=== PATIENT | male | born 1955 | race Caucasian/White ===

== ENCOUNTER 2019-05-07 13:12 | Emergency (ER) | payer OTHER, BC ==
[~2019-05-07] VITALS: Ht 188 cm; Wt 76.2 kg
[2019-05-07 13:28] VITALS: Ht 188 cm; Wt 76.2 kg
[2019-05-07 14:34] LABS: microscopic required? YES; urine erythrocyte TRACE (NEGATIVE)
[2019-05-07 15:55] VITALS: BP 145/81
== END 2019-05-07 15:55 | disposition home or self-care (01) ==
LOC: ED 13:12
PROVIDERS: Specialist
DX: R33.9 Retention of urine, unspecified (principal); N39.0 Urinary tract infection, site not specified; N40.0 Benign prostatic hyperplasia without lower urinary tract symptoms; Z91.030 Bee allergy status

== ENCOUNTER 2019-05-23 18:01 | Emergency (ER) | payer OTHER, BC ==
[~2019-05-23] VITALS: Ht 182.9 cm; Wt 74.8 kg
[2019-05-23 18:03] VITALS: Ht 182.9 cm; Wt 74.8 kg
[2019-05-23 19:01] LABS: BASOPHIL % 0.7 % (0-2); PLATELET COUNT 254 x10^3mcL (130-400); RED CELL DISTRIBUTION WIDTH 13.4 % (11.5-14.5)
[2019-05-23 19:09] LABS: CALCIUM 9.3 mg/dL (8.5-10.1); CARBON DIOXIDE 32.2 mmol/L (21-32); CHLORIDE SERUM 105 mmol/L (98-107); CREATININE SERUM 0.7 mg/dL (0.7-1.3); GFR1 > 60 mL/min; GLUCOSE SERUM 92 mg/dL (74-106); POTASSIUM SERUM 3.9 mmol/L (3.5-5.1); SODIUM SERUM 144 mmol/L (136-145)
[2019-05-23 20:50] VITALS: BP 125/95
== END 2019-05-23 20:48 | disposition home or self-care (01) ==
LOC: ED 18:01
PROVIDERS: Emergency Medicine
DX: R33.9 Retention of urine, unspecified (principal); R39.15 Urgency of urination; R30.0 Dysuria; Z91.030 Bee allergy status
CPT/HCPCS: 36415